=== PATIENT | male | born 1960 | race Hispanic/Latino ===

== ENCOUNTER 2016-11-03 11:09 | Inpatient (IN) | payer MEDICARE, MEDICAID ==
[2016-11-03 11:10] VITALS: PULSE 90
[2016-11-03 11:16] VITALS: BMI 54.1
--- NOTE | 2016-11-03 11:53 | C.PDOC ---
History Of Present Illness 55 y/o male, PMHx of HTN, DM, morbid obesity, COPD, CHF, urosepsis multiple times, chronic Fry and infections, presents to ED with c/o pain at Fry site. Patient sent from [facility], accompanied by daughter. Pt states pain started today at 0200. Notes burning sensation on urination since yesterday afternoon. Also reports chills and "pins and needles" sensation in lower extremities. Denies fever, nausea, vomiting, or other associated symptoms. Patient normally f/u with Dr. Cedeno, advised to come to ER today. Typically seen at [facility]. Review of prior records shows history of lamenectomy and penectomy. Chief Complaint (Nursing): Male Genitourinary History Per: Patient History/Exam Limitations: no limitations Current Symptoms Are (Timing): Still Present Associated Symptoms: Chills, Urinary Symptoms. denies: Fever, Nausea, Vomiting , Diarrhea Recent travel outside of the [place]: No Past Medical History Reviewed: Historical Data, Nursing Documentation, Vital Signs Vital Signs: Last Vital Signs Temp 97.8 F 11/06/16 07:00 Pulse 68 11/06/16 07:00 Resp 18 11/06/16 07:00 BP 164/92 H 11/06/16 07:00 Pulse Ox 97 11/06/16 07:00 - Medical History PMH: Anemia, Asthma, Atrial Fibrillation, Cardia Arrhythmia (Afib), CHF, COPD, HTN - [facility] Procedures ASSISTANCE WITH RESPIRATORY VENTILATION, <24 HRS, CPAP (09/14/16) CHANGE DRAINAGE DEVICE IN BLADDER, EXTERNAL APPROACH (03/08/16) INSPECTION OF URETER, ENDO (03/08/16) INTRODUCTION OF VASOPRESSOR INTO PERIPH VEIN, PERC APPROACH (09/02/15) IRRIGATION OF INDWELL DEV USING IRRIGAT, LAWN CARE SPECIALIST APPROACH (03/08/16) PLAIN RADIOGRAPHY OF BLADDER (03/08/16) Family History: States: Unknown Family Hx - Social History Hx Alcohol Use: No Hx Substance Use: No - Immunization History Hx Tetanus Toxoid Vaccination: No Hx Influenza Vaccination: No Hx Pneumococcal Vaccination: No Review Of Systems Except As Marked, All Systems Reviewed And Found Negative. Constitutional: Positive for: Chills. Negative for: Fever Gastrointestinal: Negative for: Nausea, Vomiting, Abdominal Pain, Diarrhea Genitourinary: Positive for: Scrotal Pain, Rash. Negative for: Hematuria Skin: Negative for: Rash Physical Exam - Physical Exam Appears: Non-toxic, No Acute Distress Skin: Warm, Dry Head: Atraumatic, Normacephalic Oral Mucosa: Moist Chest: Symmetrical Cardiovascular: Rhythm Regular Respiratory: Normal Breath Sounds, No Rales, No Rhonchi, No Wheezing Gastrointestinal/Abdominal: Soft, No Tenderness, Other (obese abdomen) Back: Normal Inspection Male Genital: Other (Fry in place. Redness, swelling, and tenderness to scrotal area. (+) Pus around Fry insertion site. ) Neurological/Psych: Oriented x3, Normal Speech, Normal Cognition ED Course And Treatment - Laboratory Results Result Diagrams: 11/05/16 07:44 11/04/16 08:18 O2 Sat by Pulse Oximetry: 96 (RA) Pulse Ox Interpretation: Normal Disposition Discussed With : Dee Dee Garcia Doctor Will See Patient In The: Hospital Counseled Patient/Family Regarding: Studies Performed, Diagnosis - Disposition Disposition: HOSPITALIZED Disposition Time: 13:49 Condition: GUARDED - POA Present On Arrival: None - Clinical Impression Clinical Impression: Cellulitis, Urinary catheter infection - Scribe Statement The provider has reviewed the documentation as recorded by the Dominic Wade Provider Scribe Attestation: All medical record entries made by the Dominic were at my direction and personally dictated by me. I have reviewed the chart and agree that the record accurately reflects my personal performance of the history, physical exam, medical decision making, and the department course for this patient. I have also personally directed, reviewed, and agree with the discharge instructions and disposition. Decision To Admit - Pt Status Changed To: Hospital Disposition Of: Inpatient - Admit Certification Admit to Inpatient:: After my assessment, the patient will require hospitalization for at least two midnights. This is because of the severity of symptoms shown, intensity of services needed, and/or the medical risk in this patient being treated as an outpatient. - InPatient: Physician Admission Certification: I certify that this patient requires 2 or more midnights of care for the following reason:: celulitis , groin, uti - . Bed Request Type: Regular Patient Diagnosis: Cellulitis, Urinary catheter infection
[2016-11-03] MEDS ORDERED: cefTRIAXone IV 1 gm in Dextros 50 ML IVPB STA (12:31)
[2016-11-03] MEDS ORDERED: Vancomycin 1 gm/NS 200 ml 1 GM/200 ML BAG IVPB ONE (13:30)
[2016-11-03 13:33] LABS: VENOUS BLOOD GAS BASE EXCESS 4.5 mmol/L (0.0-2.0); VENOUS BLOOD GAS PCO2 54 mmHg (40-60); VENOUS BLOOD PH 7.37 (7.32-7.43)
[2016-11-03] MEDS ORDERED: Morphine 4 MG/ML VIAL IV STA (13:36)
[2016-11-03] MEDS ORDERED: Morphine 4 MG/ML VIAL ONE (13:38)
[2016-11-03 13:39] LABS: BASO # 0.1 K/uL (0.0-0.2); BASO % 0.2 % (0.0-2.0); EOS % 0.1 % (0.0-4.0); HEMATOCRIT 53.6 % (35.0-51.0); LYMPH % 4.6 % (20.0-40.0); MEAN CORPUSCULAR HEMOGLOBIN 26.7 pg (27.0-31.0); MEAN CORPUSCULAR HGB CONC 32.2 g/dL (33.0-37.0); MEAN PLATELET VOLUME 9.4 fL (7.2-11.7); MONO # 1.3 K/uL (0.0-0.8); MONO % 5.7 % (0.0-10.0); NRBC % 0.1 % (0.0-2.0); PLATELET COUNT 276 K/uL (130-400); RED CELL DISTRIBUTION WIDTH 14.7 % (11.5-14.5); WHITE BLOOD COUNT 22.5 K/uL (4.8-10.8)
[2016-11-03 13:47] LABS: CHLORIDE 95 mmol/L (98-107)
[2016-11-03 13:48] LABS: POTASSIUM 4.8 mmol/L (3.6-5.2); SODIUM 137 mmol/L (132-148)
[2016-11-03 13:50] LABS: INR 1.5
[2016-11-03 13:51] LABS: ALB/GLOB RATIO 1.1 (1.0-2.1); ALKALINE PHOSPHATASE 95 U/L (38-126); ALT/SGPT 26 U/L (21-72); AST/SGOT 30 U/L (17-59); BILIRUBIN,TOTAL 0.9 mg/dL (0.2-1.3); BLOOD UREA NITROGEN 25 mg/dL (9-20); CALCIUM 9.2 mg/dl (8.6-10.4); CARBON DIOXIDE 28 mmol/L (22-30); GFR AFRICAN-AMERICAN > 60; GLUCOSE,RANDOM 133 mg/dL (75-110); PHOSPHOROUS 3.5 mg/dL (2.5-4.5); TOTAL PROTEIN 7.9 g/dL (6.3-8.3)
[2016-11-03 13:53] LABS: RBC URINE 8 /hpf (0-3); URINE BACTERIA RARE (<OCC); URINE BILIRUBIN 2+ (NEGATIVE); URINE BLOOD 1+ (NEGATIVE); URINE COLOR Amber (YELLOW); URINE GLUCOSE (UA) NORMAL (Normal); URINE KETONE NEGATIVE (NEGATIVE); URINE LEUKOCYTE ESTERASE TRACE Leu/uL (Negative); URINE PROTEIN 3+ mg/dL (NEGATIVE); URINE UROBILINOGEN NORMAL mg/dL (0.2-1.0); WBC URINE 8 /hpf (0-5)
[2016-11-03] MEDS ORDERED: Aztreonam 2 GM in Sodium Chloride 0.9% 100 ML IVPB ONE (13:55)
[2016-11-03 13:56] LABS: URINE TRIPLE PHOSPHATE CRYSTAL FEW /hpf (<OCC)
[2016-11-03 14:50] LABS: BASOPHIL 1 % (0-2); NEUTROPHIL 91 % (50-75); TOTAL CELLS COUNTED 100
--- NOTE | 2016-11-03 14:59 | RAD ---
HISTORY: Sepsis Patient semi portable study 12:45. COMPARISON: No prior. FINDINGS: LUNGS: No active pulmonary disease. PLEURA: No significant pleural effusion identified, no pneumothorax apparent. CARDIOVASCULAR: No radiographic findings to suggest acute or significant cardiovascular disease. OSSEOUS STRUCTURES: No significant abnormalities. VISUALIZED UPPER ABDOMEN: Normal. OTHER FINDINGS: None. IMPRESSION: No active disease.
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
--- NOTE | 2016-11-03 17:16 | CT ---
PROCEDURE: CT pelvis HISTORY: groin infection r/o air COMPARISON: Not available TECHNIQUE: Computed tomography of the pelvis was performed without intravenous contrast administration. 2.5 mm contiguous axial sections were acquired from the iliac crests through the perineum. Total exam DLP: 1765.00 mGy-cm FINDINGS: There is a low-density structure just to the left of midline above the level of the perineum. This measures 3.8 x 1.9 by 4.8 cm. There is no surrounding inflammatory change. It is thin walled. Differential diagnosis includes abscess or undescended testicle. Please correlate. There is cellulitis of the medial proximal left thigh, just below the level of the perineum. This is seen as cutaneous thickening and streaky increased attenuation of the subcutaneous fat. There is no abscess. There is no subcutaneous emphysema. A urinary catheter is noted extending into the urinary bladder. Examination of the pelvis demonstrates the bladder to be thick walled with mild surrounding inflammatory change consistent with cystitis. Prostate and seminal vesicles are grossly normal. There are no abnormal bowel loops. There is no evidence of ascites. There is no significant pelvic lymphadenopathy. IMPRESSION: Cellulitis of the medial proximal left thigh. No abscess or subcutaneous emphysema. Low-attenuation structure to the left of midline just above the level of the perineum, possibly an undescended testis. Abscess is less likely given the absence of surrounding inflammatory change. There is acute cystitis. This is manifested as thick walled urinary bladder with perivesical inflammatory change. A urinary catheter is noted.
[2016-11-03] MEDS: (Novolin R) Insulin Human Regular 100 units/ml vial SC SCH (21:53)
[2016-11-03] MEDS ORDERED: Insulin Detemir 100 units/ml Vial (Levemir) SC SCH (22:00)
[2016-11-03] MEDS ORDERED: Aztreonam 1 GM in Sodium Chloride 0.9% 100 ML IVPB ONE (22:05)
[2016-11-04 08:26] LABS: BASO # 0.1 K/uL (0.0-0.2); BASO % 0.3 % (0.0-2.0); EOS % 0.1 % (0.0-4.0); HEMATOCRIT 46.3 % (35.0-51.0); LYMPH # 1.3 K/uL (1.0-4.3); LYMPH % 7.1 % (20.0-40.0); MEAN CELL VOLUME 82.5 fL (80.0-94.0); MEAN CORPUSCULAR HEMOGLOBIN 26.6 pg (27.0-31.0); MEAN CORPUSCULAR HGB CONC 32.2 g/dL (33.0-37.0); MEAN PLATELET VOLUME 9.5 fL (7.2-11.7); MONO # 1.8 K/uL (0.0-0.8); MONO % 10.2 % (0.0-10.0); PLATELET COUNT 234 K/uL (130-400); RED CELL DISTRIBUTION WIDTH 14.8 % (11.5-14.5); WHITE BLOOD COUNT 17.8 K/uL (4.8-10.8)
[2016-11-04 08:39] LABS: BILIRUBIN,DIRECT 0.5 mg/dL (0.0-0.4); BILIRUBIN,TOTAL 0.9 mg/dL (0.2-1.3)
[2016-11-04 08:40] LABS: CALCIUM 8.3 mg/dl (8.6-10.4); TOTAL PROTEIN 6.4 g/dL (6.3-8.3)
[2016-11-04] MEDS: (Novolin R) Insulin Human Regular 100 units/ml vial SC SCH ×4 (08:41→22:00)
--- NOTE | 2016-11-04 09:28 | HP ---
CHIEF COMPLAINT: Burning at micturition, genitalia hurts. HISTORY OF PRESENT ILLNESS: The patient is a 55-year-old male with past medical history of hypertension, diabetes mellitus, morbid obesity, COPD, congestive heart failure, urosepsis multiple times, chronic Fry catheter, presented to the Emergency Room complaining of pain at the Fry site. The patient [facility] accompanied by daughter. The patient stated that the pain started today at 2:00 p.m. and the patient noticed a burning sensation on urination since yesterday afternoon, also reports chills, pins and needles sensation in the lower extremities. Denies nausea, vomiting, diarrhea. No headache, no dizziness. Actually, the patient is supposed to see Dr. Cedeno, but he advised to come to the Emergency Room. Typically, the patient is seen at the [facility]; however, our prior record shows history of laminectomy and splenectomy PAST MEDICAL HISTORY: Anemia, asthma, atrial fibrillation, obesity, congestive heart failure, COPD, hypertension, obstructive sleep apnea syndrome, splenectomy , laminectomy. HABITS: Never smoked, no drugs, no ethanol. FAMILY HISTORY: Father and mother noncontributory. ALLERGIES: THE PATIENT IS ALLERGIC TO PENICILLIN. HOME MEDICATIONS: Metoprolol, clonidine, Levemir, NovoLog, Pepcid, aspirin, Tylenol. REVIEW OF SYSTEMS: The patient seen and examined on the bedside in his room on the third tower. No hematuria or hematochezia. No swelling of the leg. No chest pain, no palpitation, no headache, no dizziness. No fever, no chills. Complaining about burning sensation at the genitalia. Pain at micturition. Feeling fatigued and tired. No chest pain, no shortness of breath. PHYSICAL EXAMINATION: VITAL SIGNS: Temperature 98, pulse 111, blood pressure 170/75, respiratory rate 20. HEENT: Head normocephalic, atraumatic. Eyes: PERRLA. Extraocular muscles intact. Conjunctivae clear. Eyelids unremarkable. Nose patent. Mucous membranes moist. NECK: Supple. No carotid bruit, JVD or thyromegaly. CHEST: Bilaterally symmetrical. HEART: S1, S2 positive. LUNGS: Clear to auscultation. ABDOMEN: Soft. Bowel sounds present. No organomegaly. EXTREMITIES: No edema, no cyanosis. NEUROLOGIC: The patient is awake, alert, moving all 4 extremities. No focal deficit. LABORATORY DATA: White blood cell is 22.5, hemoglobin 17.2, hematocrit 35.6, platelets 276. Sodium 137, potassium 4.8, BUN 25, creatinine 1.3, glucose 145. ASSESSMENT AND PLAN: The patient is a 55-year-old male with leukocytosis, hyperglycemia, proteinuria, hematuria, seen by Dr. Robbi Whitt, infectious disease, went for pelvic CT, showed cellulitis of the medial proximal left thigh , no abscess or subcutaneous emphysema, low-attenuated structure to the left midline just above the level of the perineum, possibly an undescended testis. Abscess is less likely given the absence of the surrounding inflammatory changes. There is acute cystitis. This is manifested as thick-walled urinary bladder with perivesical inflammation, inflammatory changes. Urinary catheter is noted. The patient had splenectomy and always has a Fry inserted. Due to weight, testicles are not visible. Maybe in the CAT scan, it looks like testicles, has cystitis. Urology consult called with Dr. Cedeno. Dr. Cedeno is always changing the patient's Fry catheter. The patient has history of hypertension, diabetes mellitus, morbid obesity, chronic obstructive pulmonary disease, congestive heart failure, multiple times urosepsis. We will do present treatment. Continue antibiotics. Maybe Dr. Cedeno has to change the Fry catheter. Consult called with Dr. Whitt, infectious disease and Dr. Clint Cedeno, urologist. Continue aspirin, heparin, metoprolol, morphine pain medication, regular insulin sliding scale, Pepcid, vancomycin. Gastrointestinal and deep venous thrombosis prophylaxis. Repeat labs. We will follow up. Dee Dee Garcia MD cc: [id number] TT: 11/04/2016 09:26:47 ana CRUZ
[2016-11-04 12:38] LABS: REACTIVE LYMPHOCYTES 2 % (0-0); TOTAL CELLS COUNTED 100
[2016-11-04 12:39] LABS: NEUTROPHIL 80 % (50-75)
[2016-11-04] MEDS: Tigecycline 50 MG in Dextrose 5% In Water 100 ML IVPB SCH (16:30)
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
--- NOTE | 2016-11-05 00:48 | CP.PCM.PN ---
Subjective - Date & Time of Evaluation Date of Evaluation: 11/04/16 Time of Evaluation: 20:00 - Subjective Subjective: PROGRESS NOTE; DATE ; 11/04/16. SEE REPORTS pATIENT SEEN AND EXAMINED AT BEDSIDE. lABS AND MICROBIOLOGY REVIEWED PROGRESS NOTE DICTATED.; DICTATION NO. # [id number] CASE DISCUSSED WITH THE STAFF AND ORDERS GIVEN. Objective - Vital Signs/Intake and Output Vital Signs (last 24 hours): Temp Pulse Resp BP Pulse Ox 98.1 F 84 20 128/76 96 11/04/16 23:41 11/04/16 23:41 11/04/16 23:41 11/04/16 23:41 11/04/16 23:41 Intake and Output: 11/04/16 11/05/16 18:59 06:59 Intake Total 500 Output Total 2800 Balance -2300 - Medications Medications: Current Medications Aspirin (Aspirin Chewable) 81 mg PO DAILY [facility] Last Admin: 11/04/16 11:28 Dose: 81 mg Famotidine (Pepcid) 20 mg PO BID [facility] Last Admin: 11/04/16 17:18 Dose: 20 mg Heparin Sodium (Porcine) (Heparin) 5,000 units SC Q8 [facility] Last Admin: 11/04/16 22:00 Dose: 5,000 units Tigecycline 50 mg/ Dextrose 100 mls @ 100 mls/hr IVPB Q12H [facility] Last Admin: 11/04/16 16:30 Dose: 100 mls/hr Insulin Human Regular (Novolin R) 0 unit SC ACHS [facility] PRN Reason: Protocol Last Admin: 11/04/16 22:00 Dose: Not Given Metoprolol Tartrate (Lopressor) 25 mg PO BID [facility] Last Admin: 11/04/16 17:18 Dose: 25 mg Morphine Sulfate (Morphine) 2 mg IVP Q4 PRN PRN Reason: Pain, severe (8-10) Last Admin: 11/03/16 20:11 Dose: 2 mg Nystatin (Nystop Topical Powder) 1 applic TOP BID [facility] - Labs Labs: 11/04/16 08:18 11/04/16 08:18 PT 17.9 SECONDS (9.7-12.2) H 11/03/16 13:34 INR 1.5 11/03/16 13:34 APTT 42 SECONDS (21-34) H 11/03/16 13:34 Assessment and Plan (1) Sepsis Status: Acute (2) UTI (urinary tract infection) Status: Acute (3) Cellulitis Status: Acute
[2016-11-05] MEDS: Tigecycline 50 MG in Dextrose 5% In Water 100 ML IVPB SCH ×2 (03:17→16:00)
--- NOTE | 2016-11-05 04:21 | PN ---
DATE: 11/04/2016 SUBJECTIVE: The patient seen and examined at bedside, appears comfortable, still complaining of pain at the site of the catheter insertion. No hematuria, but incontinence of urine noted around the cat heter site. Bilateral erythema of both groins and scrotum noted. Denies nausea, vomiting, or diarrh ea. PHYSICAL EXAMINATION: VITAL SIGNS: The patient is afebrile at 98.8, pulse 85, blood pressure 121/70, respirations 20. HEENT: Pupils equal, reactive to light and accommodation. Left eye blind. NECK: Appears to be normal and supple. No carotid bruit. JVP not elevated. No thyromegaly. LUNGS: Bilateral symmetrical. No rhonchi. CARDIOVASCULAR SYSTEM: S1, S2 regular, positive. LUNGS: Clear to auscultation, some diminished breath sounds at the bases. ABDOMEN: Soft, obese. Bowel sounds present. No organomegaly appreciated. Skin folds. EXTREMITIES: Bilateral edema of the lower extremities noted. No cyanosis, no clubbing. GENITOURINARY: Erythema of the scrotal region and bilateral groins noted, consistent with moniliasis . CENTRAL NERVOUS SYSTEM: The patient is awake, but unable to move lower extremities, except for withd kevon reflex. LABORATORY DATA NOTED: WBC is 17.8, H and H of 14.9 and 46.3, platelets 234. Creatinine 1.8, BUN of 36, GFR of 39. Liver function tests are okay. CT pelvis without p.o. or IV contrast, 11/03/2016, n oted cellulitis in the medial proximal thigh, no abscess. Subcutaneous emphysema noted. Acute cysti tis with thick-walled urinary bladder with inflammation. Urinary catheter is in place. See fu ll report for details. IMPRESSION: 1. Sepsis, most likely genitourinary sepsis. 2. Urinary tract infection and cystitis with chronic Fry in place. 3. Bilateral moniliasis. PLAN: Suggest wait for cultures, UA, and urine. Continue IV Tygacil 50 mg q. 12 hourly for now. Al so, we will order nystatin powder for bilateral groins, lower extremities. Keep the area dry. The p atient got 1 dose of amikacin 1000 mg on 11/03/2016. Monitor renal functions closely. Neurology is o n the case. We will follow along with you. Thank you very much for allowing me to participate in the care of your patient. Robbi Whitt MD cc: [id number] TT: 11/05/2016 04:20:28 Confirmation # [id number] Dictation # [id number] vn
[2016-11-05 07:51] LABS: BASO # 0.1 K/uL (0.0-0.2); BASO % 0.8 % (0.0-2.0); EOS # 0.3 K/uL (0.0-0.7); EOS % 2.5 % (0.0-4.0); HEMATOCRIT 43.9 % (35.0-51.0); LYMPH # 1.7 K/uL (1.0-4.3); LYMPH % 13.3 % (20.0-40.0); MEAN CELL VOLUME 82.7 fL (80.0-94.0); MEAN CORPUSCULAR HEMOGLOBIN 27.2 pg (27.0-31.0); MEAN CORPUSCULAR HGB CONC 32.9 g/dL (33.0-37.0); MEAN PLATELET VOLUME 9.1 fL (7.2-11.7); MONO # 1.1 K/uL (0.0-0.8); MONO % 9.1 % (0.0-10.0); RED CELL DISTRIBUTION WIDTH 14.8 % (11.5-14.5); WHITE BLOOD COUNT 12.5 K/uL (4.8-10.8)
[2016-11-05] MEDS: (Novolin R) Insulin Human Regular 100 units/ml vial SC SCH ×4 (08:00→21:54)
[2016-11-06] MEDS: Tigecycline 50 MG in Dextrose 5% In Water 100 ML IVPB SCH ×2 (03:14→14:46)
--- NOTE | 2016-11-06 07:51 | PN ---
DATE: 11/05/2016 The patient is a 55-year-old male. The patient seen and examined on the bedside , looks comfortable. Groin area pain is getting better, like 01/15. No hematuria, no hematochezia. No headache, no dizziness. No fever, no chills, no swelling of the legs. REVIEW OF SYSTEMS: All 12 points systemic review is negative except above. PHYSICAL EXAMINATION: VITAL SIGNS: Temperature 98.8, pulse 85, blood pressure 120/70, respiratory rate 20. HEENT: Head normocephalic, atraumatic. Eyes, PERRLA. Extraocular muscles intact. Conjunctivae are clear. Nose patent. NECK: Supple. No carotid bruit, no JVD, no thyromegaly. CHEST: Bilaterally symmetrical. HEART: S1, S2 positive. LUNGS: Clear to auscultation. ABDOMEN: Soft. Bowel sounds positive. No organomegaly. EXTREMITIES: No edema, no cyanosis, no clubbing. GENITOURINARY: Erythematous of the scrotal region, bilateral groin areas is like red, consistent with moniliasis. LABORATORIES: White blood cells 17.8, hemoglobin 14.9, hematocrit 46.3, platelets 234. BUN noted , creatinine 1.8. MEDICATIONS: Reviewed by me. ASSESSMENT AND PLAN: The patient is a 55-year-old male, came with sepsis, most likely genitourinary sepsis, urinary tract infection with cystitis with chronic Fry in place, bilateral moniliasis. Went for CAT scan of the pelvis without p.o. and IV contrast, noted cellulitis, especially medial proximal thighs. No abscess. waiting for cultures of urine. Continue IV Tygacil. Dr. Whitt ordered nystatin powder for bilateral groin areas. Keep area dry. The patient got a dose of amikacin. Urologist is on the case. Appreciated Dr. Whitt's input. Comorbid obesity, chronic obstructive pulmonary disease, obstructive sleep apnea syndrome. Gastrointestinal and deep venous thrombosis prophylaxis. Repeat labs. Will follow up. Dee Dee Garcia MD cc: [id number] TT: 11/06/2016 07:51:25 Confirmation # [id number] Dictation # [id number] hira CRUZ
[2016-11-06] MEDS: (Novolin R) Insulin Human Regular 100 units/ml vial SC SCH ×4 (08:11→21:17)
[2016-11-06 16:51] VITALS: RESP 20
--- NOTE | 2016-11-06 17:06 | CP.PCM.PN ---
Subjective - Date & Time of Evaluation Date of Evaluation: 11/06/16 Time of Evaluation: 17:06 - Subjective Subjective: INFECTIOUS DISEASE F/U: PROGRESS NOTE; 11/06/16 DICTATED; DICT NO: # [id number] SEE REPORTS NEEDS F/U FOR CHANGING FOLY CATHETER. Objective - Vital Signs/Intake and Output Vital Signs (last 24 hours): Temp Pulse Resp BP Pulse Ox 98.6 F 65 20 136/86 95 11/06/16 15:00 11/06/16 15:00 11/06/16 15:00 11/06/16 15:00 11/06/16 15:00 Intake and Output: 11/06/16 11/06/16 06:59 18:59 Intake Total 350 280 Output Total 1200 900 Balance -850 -620 - Medications Medications: Current Medications Aspirin (Aspirin Chewable) 81 mg PO DAILY [facility] Last Admin: 11/06/16 10:33 Dose: 81 mg Famotidine (Pepcid) 20 mg PO BID [facility] Last Admin: 11/06/16 10:34 Dose: 20 mg Heparin Sodium (Porcine) (Heparin) 5,000 units SC Q8 [facility] Last Admin: 11/06/16 14:45 Dose: 5,000 units Tigecycline 50 mg/ Dextrose 100 mls @ 100 mls/hr IVPB Q12H [facility] Last Admin: 11/06/16 14:46 Dose: 100 mls/hr Insulin Human Regular (Novolin R) 0 unit SC ACHS [facility] PRN Reason: Protocol Last Admin: 11/06/16 12:46 Dose: Not Given Metoprolol Tartrate (Lopressor) 25 mg PO BID [facility] Last Admin: 11/06/16 10:33 Dose: 25 mg Morphine Sulfate (Morphine) 2 mg IVP Q4 PRN PRN Reason: Pain, severe (8-10) Last Admin: 11/06/16 06:38 Dose: 2 mg Nystatin (Nystop Topical Powder) 1 applic TOP BID [facility] Last Admin: 11/06/16 14:43 Dose: 1 applic - Labs Labs: 11/05/16 07:44 11/04/16 08:18 PT 17.9 SECONDS (9.7-12.2) H 11/03/16 13:34 INR 1.5 11/03/16 13:34 APTT 42 SECONDS (21-34) H 11/03/16 13:34 Assessment and Plan (1) Sepsis Status: Acute (2) UTI (urinary tract infection) Status: Acute (3) Cellulitis Status: Acute
[2016-11-06] MEDS: Aztreonam 1 GM in Sodium Chloride 0.9% 100 ML IVPB SCH (18:30)
[2016-11-06 21:41] LABS: RBC URINE 53 /hpf (0-3); URINE BACTERIA MOD (<OCC); URINE BILIRUBIN NEGATIVE (NEGATIVE); URINE BLOOD 3+ (NEGATIVE); URINE COLOR Yellow (YELLOW); URINE GLUCOSE (UA) NORMAL (Normal); URINE KETONE NEGATIVE (NEGATIVE); URINE LEUKOCYTE ESTERASE 3+ Leu/uL (Negative); URINE PROTEIN NEGATIVE (NEGATIVE); URINE UROBILINOGEN NORMAL mg/dL (0.2-1.0); WBC URINE 340 /hpf (0-5)
[2016-11-07] MEDS: Aztreonam 1 GM in Sodium Chloride 0.9% 100 ML IVPB SCH ×3 (01:21→17:09)
[2016-11-07] MEDS: Tigecycline 50 MG in Dextrose 5% In Water 100 ML IVPB SCH ×2 (02:48→15:15)
--- NOTE | 2016-11-07 06:18 | PN ---
DATE: 11/06/2016 SUBJECTIVE: The patient was seen and examined on the bedside, looks comfortable. No new change in t he status. No nausea, vomiting, or diarrhea. No hematuria or hematochezia. No headache, no fever, no diarrhea, no constipation. PHYSICAL EXAMINATION: VITAL SIGNS: Temperature 98.6, pulse 65, respiratory rate 20, blood pressure 136/66, and pulse oxime try 95. HEENT: Head normocephalic and atraumatic. Eyes: PERRLA. Extraocular muscles intact. Conjunctivae clear. Eyelids unremarkable. Nose patent. Mucous membranes moist. NECK: Supple. No carotid bruit, JVD or thyromegaly. CHEST: Bilaterally symmetrical. HEART: S1, S2 positive. LUNGS: Clear to auscultation. ABDOMEN: Soft. Bowel sounds present. No organomegaly. EXTREMITIES: No edema, no cyanosis. NEUROLOGIC: The patient is awake, alert, moving all 4 extremities. No focal deficit. MEDICATIONS: Ecotrin, Pepcid, heparin, Tygacil, Lopressor, morphine. LABORATORY DATA: White blood cells 12.5, hemoglobin 14.4, hematocrit 33.9, and platelets 231. Sodiu m 136, potassium 4.0, BUN 36, creatinine 1.8, glucose 123. ASSESSMENT AND PLAN: The patient had a 55-year-old male with leukocytosis, renal insufficiency, hype rglycemia, came with sepsis, urinary tract infection, perineal area and genitalia cellulitis, comorbi d obesity. Continue antibiotics as per Dr. Whitt. Urologist, Dr. Cedeno, is on the case but I am no t seeing any documentation from him. I hope he will do documentation. Continue gastrointestinal and deep venous thrombosis prophylaxis. Repeat labs. We will follow up. Dee Dee Garcia MD cc: [id number] TT: 11/07/2016 06:17:42 Confirmation # [id number] Dictation # [id number] tn
[2016-11-07] MEDS: (Novolin R) Insulin Human Regular 100 units/ml vial SC SCH ×3 (07:49→17:06)
[2016-11-07 08:10] LABS: BASO # 0.1 K/uL (0.0-0.2); BASO % 0.5 % (0.0-2.0); EOS # 0.4 K/uL (0.0-0.7); EOS % 3.7 % (0.0-4.0); HEMATOCRIT 45.1 % (35.0-51.0); LYMPH # 1.7 K/uL (1.0-4.3); LYMPH % 15.5 % (20.0-40.0); MEAN CELL VOLUME 83.7 fL (80.0-94.0); MEAN CORPUSCULAR HGB CONC 33.4 g/dL (33.0-37.0); MONO % 9.7 % (0.0-10.0); NRBC % 0.1 % (0.0-2.0); RED CELL DISTRIBUTION WIDTH 14.2 % (11.5-14.5); WHITE BLOOD COUNT 10.7 K/uL (4.8-10.8)
[2016-11-07 08:32] LABS: CHLORIDE 98 mmol/L (98-107); POTASSIUM 3.9 mmol/L (3.6-5.2); SODIUM 138 mmol/L (132-148)
[2016-11-07 08:34] LABS: CARBON DIOXIDE 30 mmol/L (22-30); GFR AFRICAN-AMERICAN > 60
[2016-11-07 08:35] LABS: ALKALINE PHOSPHATASE 71 U/L (38-126); ALT/SGPT 23 U/L (21-72); AST/SGOT 14 U/L (17-59); BILIRUBIN,DIRECT 0.4 mg/dL (0.0-0.4); BILIRUBIN,TOTAL 0.9 mg/dL (0.2-1.3); BLOOD UREA NITROGEN 22 mg/dL (9-20); GLUCOSE,RANDOM 91 mg/dL (75-110); TOTAL PROTEIN 6.4 g/dL (6.3-8.3)
[2016-11-07 08:36] VITALS: TEMP 98.5
--- NOTE | 2016-11-07 09:10 | CON ---
DATE: 11/06/2016 ATTENDING: Dr. Paniagua. SUBJECTIVE: The patient is seen and examined at bedside and is comfortable and complains of pain at the site of the catheter insertion. Denies any hematuria, but incontinent of urine around the cathet er site. Bilateral erythema of both groins and scrotum, slightly improved. The patient denies nausea, vomiting, or diarrhea. PHYSICAL EXAMINATION: VITAL SIGNS: The patient is afebrile. T-max of 98.1, blood pressure 160/88, respiratory rate 20, pu lse 76 per minute, oxygen saturation 98% on room air. HEENT: Pupils equal, reactive to light and accommodation. Left eye is blind. NECK: Appears to be supple. No carotid bruits. JVP not elevated. No thyromegaly. LUNGS: Fair air entry. CARDIOVASCULAR SYSTEM: S1, S2 regular. No murmur or gallop. ABDOMEN: Soft. Obese. Bowel sounds are present. No organomegaly appreciated. EXTREMITIES: Bilateral edema of the lower extremities noted with some cellulitis around the groin re gion and erythema. No cyanosis. No clubbing. GENITOURINARY: As reported above. Erythema of the scrotal region edema and bilateral groins, consis tent with moniliasis. CENTRAL NERVOUS SYSTEM: The patient is awake, but unable to move lower extremities, except for withd kevon reflex. LABORATORY DATA NOTED: Repeat UA: Hazy, 3+ blood, 3+ leukocyte esterase, WBCs , RBCs 53, ____ _ moderate. Blood cultures 11/03/2016: Negative to date. 11/03/2016 urine culture: 50,000 to 100, 000 multiple organisms seen. Vancomycin trough. Western blot. The patient is off vancomycin. IMPRESSION: 1. 2. Urinary tract We will initiate IV Azactam 1 g q. 8 hours for now as patient has tolerated Azactam previously in his admission of 08/13/2016. Case discussed with to deliver the medications and to also giv en Benadryl 50 mg 30 minutes prior to as tolerated. Continue Azactam 1 gram for now. The patient had his Fry changed. evaluation for changing Fry catheter and further workup. Discussed with . Thank you very much for allowing me to participate Robbi Whitt MD cc: [id number] TT: 11/07/2016 05:07:21 Confirmation # [id number] Dictation # [id number] tn
--- NOTE | 2016-11-07 16:19 | CP.PCM.PN ---
Subjective - Date & Time of Evaluation Date of Evaluation: 11/07/16 Time of Evaluation: 13:00 - Subjective Subjective: Pt seen and examined today , c/o pain to the groin area, denies any other complaints plata cath changed today by Dr. Cedeno . E Objective - Vital Signs/Intake and Output Vital Signs (last 24 hours): Temp Pulse Resp BP Pulse Ox 98.5 F 62 20 162/90 H 97 11/07/16 08:00 11/07/16 08:00 11/07/16 08:00 11/07/16 10:46 11/07/16 08:00 Intake and Output: 11/07/16 11/07/16 06:59 18:59 Intake Total 540 450 Output Total 1200 800 Balance -660 -350 - Medications Medications: Current Medications Aspirin (Aspirin Chewable) 81 mg PO DAILY [facility] Last Admin: 11/07/16 10:46 Dose: 81 mg Doxycycline Hyclate (Doryx) 100 mg PO BID [facility] Famotidine (Pepcid) 20 mg PO BID [facility] Last Admin: 11/07/16 10:46 Dose: 20 mg Aztreonam 1 gm/ Sodium (Chloride) 100 mls @ 100 mls/hr IVPB Q8H [facility] Last Admin: 11/07/16 10:45 Dose: 100 mls/hr Insulin Human Regular (Novolin R) 0 unit SC ACHS [facility] PRN Reason: Protocol Last Admin: 11/07/16 11:37 Dose: Not Given Metoprolol Tartrate (Lopressor) 25 mg PO BID [facility] Last Admin: 11/07/16 10:46 Dose: 25 mg Morphine Sulfate (Morphine) 2 mg IVP Q4 PRN PRN Reason: Pain, severe (8-10) Last Admin: 11/07/16 11:24 Dose: 2 mg Nystatin (Nystop Topical Powder) 1 applic TOP BID [facility] Last Admin: 11/07/16 10:54 Dose: 1 applic - Labs Labs: 11/07/16 08:05 11/07/16 08:05 PT 17.9 SECONDS (9.7-12.2) H 11/03/16 13:34 INR 1.5 11/03/16 13:34 APTT 42 SECONDS (21-34) H 11/03/16 13:34 Assessment and Plan - Assessment and Plan (Free Text) Assessment: A/P VSS- STABLE A FEBRILE blood culture - negative D/w Dr. Whitt, cleared fro discharge to [facility] tooday from ID standpoint with 7 days of vibramycin D/W Dr. Castro , can be discharge to [facility] today and Dr. Castro will follow thte patient at [facility] Discharge plan discussed with patient , who understands and agrees with plan
[2016-11-07 16:43] VITALS: PULSE 65; O2SAT 96
[2016-11-07 17:08] VITALS: BP 170/82
--- NOTE | 2016-11-08 09:06 | CARD ---
APPROVED REPORT EKG Measurement Heart [id number] <Conclusion> Normal sinus rhythm Possible Left atrial enlargement Borderline ECG
--- NOTE | 2016-11-16 08:31 | DS ---
CHIEF COMPLAINT: Burning on micturition, genitalia hurts.. HISTORY OF PRESENT ILLNESS: The patient is a 55-year-old male, resident of [facility], status post splenectomy, has history of hypertension, diabetes mellitus, morbid obesity, COPD, congestive heart failure, has chronic Fry catheter, came to the Emergency Room because of pain at the genitalia and Fry is leaking. The patient actually was sent from jail to Dr. Cedeno's office and from there, the patient was sent to [facility] accompanying daughter. According to the patient, it is like burning sensation on urination. No fever, no chills. We admitted the patient. Did CAT scan of the pelvis, chest x-ray. The patient was seen by Dr. Robbi Whitt, infectious disease. Consult was called with Dr. Clint Cedeno, but he never saw the patient. He is the urologist of the patient. After antibiotics, the patient got better, sent back to jail with antibiotics. PAST MEDICAL HISTORY: Anemia, asthma, atrial fibrillation, obesity, congestive heart failure, COPD, hypertension, obstructive sleep apnea syndrome, splenectomy , laminectomy. HABITS: Never smoked, no drugs, no ethanol. FAMILY HISTORY: Father and mother noncontributory. ALLERGIES: THE PATIENT IS ALLERGIC WITH PENICILLIN. HOME MEDICATIONS: Reviewed by me. REVIEW OF SYSTEMS: The patient was seen and examined on the bedside. Looks comfortable. No nausea, vomiting, or diarrhea. No hematuria or hematochezia. Pain is better. Does not look like toxic. PHYSICAL EXAMINATION: VITAL SIGNS: Temperature 98.1, blood pressure 150/88, respiratory rate 20, pulse 78. HEENT: Head normocephalic, atraumatic. Eyes: PERRLA. Extraocular muscles intact. Conjunctivae clear. Nose patent. Mucous membranes moist. NECK: Supple. No carotid bruit. No JVD or thyromegaly. CHEST: Bilaterally symmetrical. HEART: S1, S2 positive. LUNGS: Clear to auscultation. ABDOMEN: Soft. Bowel sounds positive. No organomegaly. EXTREMITIES: No edema, no cyanosis. NEUROLOGIC: The patient is awake, alert, moving all 4 extremities. No focal deficit. LABORATORY DATA: White blood cells 10.7, hemoglobin 15.1, hematocrit 45.1, and platelets 202. Sodium 138, potassium 3.9, BUN 22, creatinine 0.8, glucose 125, 147, calcium 8.0. ASSESSMENT AND PLAN: The patient is a 55-year-old male with leukocytosis, hyperglycemia, hematuria, urinary tract infection, status post splenectomy, renal insufficiency, has sepsis, urinary tract infection. Perineal area and genitalia cellulitis, morbid obesity. Continue antibiotics as per Dr. Whitt. Urology, Dr. Cedeno, consult called, but not seen by him. On 11/07/16, the patient was discharged home by [facility], nurse practitioner. Fry catheter changed by Dr. Cedeno on the day of discharge. Blood cultures are negative. According to Dr. Whitt, 7 more days of the anb.. Discharge plan discussed with the patient. He understands and agrees. We will follow up in [place]. I will do continuity of care there. Dee Dee Garcia MD cc: [id number] TT: 11/16/2016 08:30:49 tn MTDD
== END 2016-11-07 18:45 | DRG 698 ==
LOC: C.ER 11:09 → C.9E 13:48 → C.3T 15:04
PROVIDERS: ADMIT Internal Medicine; ATTEND Internal Medicine
DX: T83.518A Infection and inflammatory reaction due to other urinary catheter, initial encounter (principal); R65.20 Severe sepsis without septic shock; G82.20 Paraplegia, unspecified; I50.9 Heart failure, unspecified; I11.0 Hypertensive heart disease with heart failure; I48.91 Unspecified atrial fibrillation; E11.65 Type 2 diabetes mellitus with hyperglycemia; B37.9 Candidiasis, unspecified; A41.9 Sepsis, unspecified organism; L03.315 Cellulitis of perineum; N30.01 Acute cystitis with hematuria; J44.9 Chronic obstructive pulmonary disease, unspecified; E66.01 Morbid (severe) obesity due to excess calories; Y84.6 Urinary catheterization as the cause of abnormal reaction of the patient, or of later complication, without mention of misadventure at the time of the procedure; G47.33 Obstructive sleep apnea (adult) (pediatric); Z88.0 Allergy status to penicillin; H54.42 Blindness, left eye, normal vision right eye; E83.51 Hypocalcemia; Z79.4 Long term (current) use of insulin

== ENCOUNTER 2018-05-20 11:47 | Observation (INO) | payer MEDICARE, MEDICAID ==
[2018-05-16 17:36] VITALS: PULSE 90
[2018-05-16 17:46] VITALS: BMI 55.5
[2018-05-20] MEDS ORDERED: Iohexol 240 200 ML ONE (13:26)
[2018-05-20] MEDS ORDERED: Ciprofloxacin 400mg/200ml D5W 0 MG/0 ML BAG IVPB ONE (13:27)
[2018-05-20] MEDS ORDERED: Lidocaine 2% Jelly (Uro-Jet) ONE (13:27)
[2018-05-20] MEDS ORDERED: Gentamicin 160 MG in Sodium Chloride 0.9% 100 ML IVPB SCH (14:30)
[2018-05-20] MEDS ORDERED: Gentamicin 80 mg/2mL Inj. IM ONE ×2 (15:15)
[2018-05-20] MEDS ORDERED: Influenza Vaccine 60 MCG/0.5 ML SYR (3 yr & up) IM ONE (22:19)
[2018-05-20] MEDS ORDERED: Pneumococcal 23-Valent Vaccine IM ONE (22:20)
--- NOTE | 2018-05-21 01:40 | OP ---
PROCEDURE DATE: 05/20/2018 UROLOGY OPERATIVE NOTE PREOPERATIVE DIAGNOSES: Urinary retention, voiding dysfunction, meatal stenosis, and hidden penis. POSTOPERATIVE DIAGNOSES: Urinary retention, voiding dysfunction, meatal stenosis, and extremely hidden penis. PROCEDURES: Meatal dilatation and insertion of a Fry catheter with difficulty. COMPLICATIONS: There were no complications. BLOOD LOSS: Less than 10 mL. Determination, it appears that the patient has an indwelling Fry catheter. See the history and physical for further details. This is a very pleasant gentleman who is here now for the above procedure. DESCRIPTION OF PROCEDURE: First, we tried doing with just local lidocaine, but then the patient was somewhat uncomfortable. We ended up leading to give him a little bit of nitrates. Just to find the meatus anatomy, I was unable to find the meatus that I cannot see it well, but I can grab up on the penis and the glans and then unable to insert the Fry, today we were not able to do easily. The procedure continued along and in this fashion, we were able to find it. We actually had used a dilatator a little bit to appreciate the meatus better. I needed two hands to help me just to identify. I then inserted the Fry catheter via the urethra. The meatus, the place where we removed the old catheter from, is difficulty to manage well. I think the old catheter was not enough for now. Subsequently when we got into the bladder, we had a good urine output. We irrigated. It looks like a thin wall. The patient tolerated without complications. ADDENDUM TO THIS NOTE: I am still concerned because it is just an unusual urethra. I am going to provide the patient with antibiotics right now with the dose of gentamicin, but my real suggestion is going to be considered even if this is erratic thought, some form of circumcision to have better exposure to the penis or even consider a cut down the cystostomy tube, and it was becoming progressively more difficult. Clint Cedeno MD
--- NOTE | 2018-05-21 06:50 | HP ---
REASON FOR ADMISSION: Catheter not working well. HISTORY OF PRESENT ILLNESS: The patient was in emergency room on 05/17/2018, I spoke to the doctor at that time and the PA, and we discussed inserting the catheter and discussed me coming to insert the catheter. After the PA subsequently placed the catheter, felt that it was in place and the patient was discharged home, but he reports to me that over the course of the weekend, it was leaking and it was not doing well. catheter we brought him here as an emergency. We are going to bring him to the OR to change it. See the operative note below. PAST MEDICAL AND SURGICAL HISTORY: As listed. Patient of Dr. Garcia. SOCIAL HISTORY: Socially, he is in the correction. PHYSICAL EXAMINATION: GENERAL: Well nourished male. Body habitus noted. He is on a stretcher. VITAL SIGNS: As noted. ABDOMEN: Overall soft. Not grossly distended. : His penis is the following, you cannot see the meatus from the skin, normally what I do, when I change the catheter, although today it was difficult, I grab the skin and I am able to negotiate and grab the penis at its base. Today, it is extremely difficult and cannot find the meatus as well. See the operative note for separate procedure note. DIAGNOSES: Urinary retention, voiding dysfunction, meatal stenosis, terribly tight phimosis. PLAN: As follows, normally what we are able to do is to remove the catheter and insert a new one, I believe that over the last change the patient was went to the emergency room on I believe 05/16/2018 or 05/17/2018, but I think it is 05/17/2018 where they felt that perhaps they got the catheter, but perhaps to the hub. He has been having trouble through weekend, so we will bring him as an emergency admission to the same day unit. We are going to try to change the catheter again now and then see how he does. ADDENDUM: I had some great difficulty. We had actually given sedation, which we do not normally do. See the operative note. We were able to eventually insert a Fry catheter via the urethra a 20-Persian home health care coordinator-day tipped and we irrigated it. The patient tolerated the procedure well. See the separately dictated operative note. DIAGNOSES: Urinary retention, voiding dysfunction, hematuria in a gentleman who is a very pleasant 57-year-old frail with multiple medical problems. The plan is follows, monitor his urine output, to the correction and we will call them if there is any difficulty, we are going to treat him accordingly. We will also gave the patient some gentamicin for prophylaxis. Clint Cedeno MD
[2018-05-21 07:39] VITALS: RESP 20
[2018-05-21] MEDS ORDERED: Influenza Vaccine 60 MCG/0.5 ML SYR (3 yr & up) IM ONE (10:00)
[2018-05-21] MEDS ORDERED: (Novolog Mix 70/30) Insulin Aspart/Insulin Aspar 100 units/ml SC ONE (11:41)
[2018-05-21] MEDS: (Novolog) Insulin Aspart, Recombinant 100 u/ml 10 ml vial SC SCH ×2 (16:32→22:05)
--- NOTE | 2018-05-21 16:34 | CP.PCM.PN ---
Subjective - Date & Time of Evaluation Date of Evaluation: 05/21/18 Time of Evaluation: 16:34 - Subjective Subjective: PATIENT SEEN AND EXAMINED AT THE BEDSIDE Objective - Vital Signs/Intake and Output Vital Signs (last 24 hours): Temp Pulse Resp BP Pulse Ox 97.9 F 90 20 146/87 96 05/21/18 15:00 05/21/18 15:00 05/21/18 15:00 05/21/18 15:00 05/21/18 15:00 Intake and Output: 05/21/18 05/21/18 06:59 18:59 Intake Total 240 500 Output Total 1250 800 Balance -1010 -300 - Medications Medications: Current Medications Insulin Aspart (Novolog) 0 unit SC [facility]; Protocol Last Admin: 05/21/18 16:32 Dose: 12 units Assessment and Plan - Assessment and Plan (Free Text) Assessment: PLACE UNDER THE SERVICE OF DR SAUNDERS AT [facility]---CLL FOR ADMITTING ORDER FOLLOW UP WITH DR SALDANA IN 2-3 WEEK ---CALL FOR APPOINTMENT ADDRESS THE GONZALES CATHETER AT YOUR VISIT CONTINUE HOME MEDICATION GONZALES CATHETER CARE PER FACILITY PROTOCOL ACTIVITY TOLERATED AND FACILITY PROTOCOL CALL DR SAUNDERS OR DR SALDANA OR GO TO THE EMERGENCY IF SYMPTOM RETURN OR WORSENING
[2018-05-21] MEDS ORDERED: Magnesium Hydroxide Susp 30 ml UD PO PRN (22:49)
[2018-05-21] MEDS ORDERED: Budesonide 0.5 mg/2 ml Inhal Susp UD IH SCH (23:00)
[2018-05-22 07:47] LABS: HEMOGLOBIN 15.9 g/dL (12.0-18.0); MEAN CELL VOLUME 81.8 fL (80.0-94.0); MEAN CORPUSCULAR HEMOGLOBIN 27.3 pg (27.0-31.0); MEAN CORPUSCULAR HGB CONC 33.4 g/dL (33.0-37.0); MEAN PLATELET VOLUME 9.7 fL (7.2-11.7); RBC 5.82 Mil/uL (4.40-5.90); RED CELL DISTRIBUTION WIDTH 14.9 % (11.5-14.5); WHITE BLOOD COUNT 11.9 K/uL (4.8-10.8)
[2018-05-22 07:56] LABS: ALBUMIN 3.3 g/dL (3.5-5.0); ALT/SGPT 26 U/L (21-72); AST/SGOT 17 U/L (17-59); BLOOD UREA NITROGEN 15 mg/dL (9-20); CALCIUM 8.7 mg/dl (8.6-10.4); GFR NON-AFRICAN AMERICAN > 60; HDL CHOLESTEROL 23 mg/dL (30-70)
[2018-05-22 07:58] VITALS: O2SAT 95
[2018-05-22 08:06] LABS: LDL CHOLESTEROL 147 mg/dL (0-129)
[2018-05-22] MEDS: Albuterol-Ipratrop 3 mg / 0.5 (3 ml) UD IH SCH ×2 (08:20→14:05)
[2018-05-22] MEDS: (Novolog) Insulin Aspart, Recombinant 100 u/ml 10 ml vial SC SCH ×2 (08:30→12:30)
--- NOTE | 2018-05-22 12:42 | PCM.URO ---
Urology Progress Note - General General: No Complaints, Tolerating Diet - Subjective Abdominal Pain: No Flank Pain: No Nausea: No Vomiting: No Hematuria: No Dsypnea: No Chest Pain: No Fever & Chills: No - Objective Lab Studies: Reviewed Lab Results Last 24 Hours: Laboratory Results - last 24 hr 05/21/18 05/21/18 05/22/18 16:11 21:46 06:21 WBC RBC Hgb Hct MCV MCH MCHC RDW Plt Count MPV Sodium Potassium Chloride Carbon Dioxide Anion Gap BUN Creatinine Est GFR ( Amer) Est GFR (Non-Af Amer) POC Glucose (mg/dL) 418 H* 295 H 313 H Random Glucose Hemoglobin A1c Calcium Phosphorus Magnesium Total Bilirubin AST ALT Alkaline Phosphatase Total Protein Albumin Globulin Albumin/Globulin Ratio Triglycerides Cholesterol LDL Cholesterol Direct HDL Cholesterol 05/22/18 05/22/18 05/22/18 07:34 07:34 07:34 WBC 11.9 H RBC 5.82 Hgb 15.9 Hct 47.6 MCV 81.8 MCH 27.3 MCHC 33.4 RDW 14.9 H Plt Count 230 MPV 9.7 Sodium 132 Potassium 4.1 Chloride 95 L Carbon Dioxide 29 Anion Gap 12 BUN 15 Creatinine 0.7 L Est GFR ( Amer) > 60 Est GFR (Non-Af Amer) > 60 POC Glucose (mg/dL) Random Glucose 384 H Hemoglobin A1c 10.0 H Calcium 8.7 Phosphorus 3.3 Magnesium 1.8 Total Bilirubin 0.6 AST 17 D ALT 26 Alkaline Phosphatase 81 Total Protein 6.6 Albumin 3.3 L Globulin 3.3 Albumin/Globulin Ratio 1.0 Triglycerides 145 Cholesterol 188 LDL Cholesterol Direct 147 H HDL Cholesterol 23 L 05/22/18 11:01 WBC RBC Hgb Hct MCV MCH MCHC RDW Plt Count MPV Sodium Potassium Chloride Carbon Dioxide Anion Gap BUN Creatinine Est GFR ( Amer) Est GFR (Non-Af Amer) POC Glucose (mg/dL) 338 H Random Glucose Hemoglobin A1c Calcium Phosphorus Magnesium Total Bilirubin AST ALT Alkaline Phosphatase Total Protein Albumin Globulin Albumin/Globulin Ratio Triglycerides Cholesterol LDL Cholesterol Direct HDL Cholesterol Intake & Output: Intake & Output 05/21/18 05/22/18 05/22/18 18:59 06:59 18:59 Intake Total 500 740 Output Total 800 1700 Balance -300 -960 Intake: Oral 500 740 Output: Urine 800 1700 Urethral (Fry) 800 1700 Other: # Bowel Movements 1 2 Vital Signs: Vital Signs - 24 hr 05/21/18 05/21/18 05/22/18 15:00 23:45 07:57 Temperature 97.9 F 98.2 F 97.9 F Pulse Rate 90 80 88 Respiratory 20 20 20 Rate Blood Pressure 146/87 139/93 H 117/72 O2 Sat by Pulse 96 93 L 95 Oximetry 05/22/18 05/22/18 05/22/18 09:44 10:04 10:05 Temperature Pulse Rate 88 97 H Respiratory Rate Blood Pressure 152/91 H 152/91 H O2 Sat by Pulse Oximetry - Physical Exam Abdominal Exam: Soft, Non-Tender, Non-Distended Back: No CVA Tenderness Genitalia: Without Inflammation Urinary Catheter Draining Well: Yes Urine Color: Clear, Yellow - Male Phallus: Normal - Plan Additional Information: Imp: stable overall. retention. catheter in place. neurogenic bladder - Date & Time of Note Date: 05/22/18 Time: 12:41
[2018-05-22 15:45] VITALS: BP 148/79; PULSE 98; TEMP 98
--- NOTE | 2018-05-22 21:16 | CP.PCM.CON ---
Past Patient History - Infectious Disease Hx of Infectious Diseases: None - Past Medical History & Family History Past Medical History?: Yes - Past Social History Smoking Status: Former Smoker - CARDIAC Hx Cardiac Disorders: Yes Hx Cardia Arrhythmia: Yes (Afib) Hx Circulatory Problems: Yes Hx Congestive Heart Failure: Yes Hx Hypercholesterolemia: Yes Hx Hypertension: Yes Hx Peripheral Edema: Yes - PULMONARY Hx Respiratory Disorders: Yes Hx Asthma: Yes Hx Chronic Obstructive Pulmonary Disease (COPD): Yes - NEUROLOGICAL Hx Neurological Disorder: Yes HX Cerebrovascular Accident: Yes Hx Paralysis: Yes Other/Comment: Paraplegia/ spinal tumor-WITH SX 2014 unable to ambulated since, weakness ble and weak hand grasps, cold b/l ankles and feet - HEENT Hx HEENT Problems: Yes Hx Blind: Yes (left eye) - RENAL Hx Chronic Kidney Disease: No Other/Comment: renal insuffieciency - ENDOCRINE/METABOLIC Hx Endocrine Disorders: Yes Hx Adrenal Cancer: No Hx Diabetes Insipidus: Yes Hx Diabetes Mellitus Type 1: Yes Hx Diabetes Mellitus Type 2: Yes - HEMATOLOGICAL/ONCOLOGICAL Hx Blood Disorders: No Hx Anemia: Yes Hx Blood Transfusions: No Hx Cancer: No Other/Comment: sepsis - INTEGUMENTARY Hx Dermatological Problems: No Other/Comment: ABDOMINAL FOLDS MASD,BILATERAL LE SKIN DRYNESS,LARGE THIN FLAKES,LIGHT BROWN SKIN DISCOLORATION,RIGHT BIG TOE WITH FLUSHED SKIN,SWELLING.STATES NAIL WAS CLIPPED AND NEVER HEALED. - MUSCULOSKELETAL/RHEUMATOLOGICAL Hx Musculoskeletal Disorders: Yes Hx Arthritis: Yes Hx Back Pain: Yes Hx Falls: No Hx Spinal Stenosis: Yes Hx Unsteady Gait: Yes (bedridden hoya lift oob to chair) Other/Comment: paraplygia - GASTROINTESTINAL Hx Gastrointestinal Disorders: No Other/Comment: Morbid obesity, incONTINENT - GENITOURINARY/GYNECOLOGICAL Hx Genitourinary Disorders: Yes Hx Incontinence: Yes Hx Urinary Tract Infection: Yes Other/Comment: chronic Urinary catheter - PSYCHIATRIC Hx Psychophysiologic Disorder: No Hx Substance Use: No - SURGICAL HISTORY Hx Surgeries: Yes Hx Musculoskeletal Surgery: Yes (RIGHT KNEE) Hx Orthopedic Surgery: Yes (BILATERAL WRIST CARPAL TUNNEL REPAIR) Other/Comment: spinal sx - ANESTHESIA Hx Anesthesia: Yes Hx Anesthesia Reactions: No Hx Malignant Hyperthermia: No Meds Allergies/Adverse Reactions: Allergies Allergy/AdvReac Type Severity Reaction Status Date / Time Penicillins Allergy Severe ANAPHYLAXIS Verified 05/16/18 17:41 Results - Vital Signs Recent Vital Signs: Last Vital Signs Temp 98.0 F 05/22/18 15:00 Pulse 98 H 05/22/18 15:00 Resp 20 05/22/18 15:00 BP 148/79 05/22/18 15:00 Pulse Ox 95 05/22/18 15:00 - Labs Result Diagrams: 05/22/18 07:34 05/22/18 07:34 Labs: Laboratory Results - last 24 hr 05/21/18 05/22/18 05/22/18 21:46 06:21 07:34 WBC 11.9 H RBC 5.82 Hgb 15.9 Hct 47.6 MCV 81.8 MCH 27.3 MCHC 33.4 RDW 14.9 H Plt Count 230 MPV 9.7 Sodium Potassium Chloride Carbon Dioxide Anion Gap BUN Creatinine Est GFR ( Amer) Est GFR (Non-Af Amer) POC Glucose (mg/dL) 295 H 313 H Random Glucose Hemoglobin A1c Calcium Phosphorus Magnesium Total Bilirubin AST ALT Alkaline Phosphatase Total Protein Albumin Globulin Albumin/Globulin Ratio Triglycerides Cholesterol LDL Cholesterol Direct HDL Cholesterol 05/22/18 05/22/18 05/22/18 07:34 07:34 11:01 WBC RBC Hgb Hct MCV MCH MCHC RDW Plt Count MPV Sodium 132 Potassium 4.1 Chloride 95 L Carbon Dioxide 29 Anion Gap 12 BUN 15 Creatinine 0.7 L Est GFR ( Amer) > 60 Est GFR (Non-Af Amer) > 60 POC Glucose (mg/dL) 338 H Random Glucose 384 H Hemoglobin A1c 10.0 H Calcium 8.7 Phosphorus 3.3 Magnesium 1.8 Total Bilirubin 0.6 AST 17 D ALT 26 Alkaline Phosphatase 81 Total Protein 6.6 Albumin 3.3 L Globulin 3.3 Albumin/Globulin Ratio 1.0 Triglycerides 145 Cholesterol 188 LDL Cholesterol Direct 147 H HDL Cholesterol 23 L
[2018-05-22] MEDS ORDERED: Home Med 1 UNIT (Melatonin [Melatonin] 3 MG) PO SCH (22:00)
[2018-05-22] MEDS ORDERED: Rosuvastatin Calcium 2.5 mg Tab PO SCH (22:00)
[2018-05-22] MEDS ORDERED: Insulin Detemir 100 units/ml Vial (Levemir) SC SCH (22:00)
== END 2018-05-22 16:41 | disposition home or self-care (01) ==
LOC: C.SDS 11:47 → C.9S 15:17 → C.5S 20:57
PROVIDERS: ADMIT Urology; ATTEND Urology
DX: R33.9 Retention of urine, unspecified (principal); N35.911 Unspecified urethral stricture, male, meatal; Q55.64 Hidden penis; I48.91 Unspecified atrial fibrillation; I50.9 Heart failure, unspecified; E78.00 Pure hypercholesterolemia, unspecified; I11.0 Hypertensive heart disease with heart failure; J44.9 Chronic obstructive pulmonary disease, unspecified; Z86.73 Personal history of transient ischemic attack (TIA), and cerebral infarction without residual deficits; Z79.4 Long term (current) use of insulin; Z87.440 Personal history of urinary (tract) infections; Z87.891 Personal history of nicotine dependence; C91.10 Chronic lymphocytic leukemia of B-cell type not having achieved remission; G82.20 Paraplegia, unspecified; H54.7 Unspecified visual loss
CPT/HCPCS: 36415; 51703; 80053; 80061; 82948; 83036; 83735; 84100; 85027; 94640; G0378; J1580

== ENCOUNTER 2018-11-25 14:41 | Emergency (ER) | payer MEDICARE, MEDICAID ==
[2018-11-25 14:41] VITALS: PULSE 90
[2018-11-25 14:54] VITALS: BMI 52.4
--- NOTE | 2018-11-25 15:25 | C.PDOC ---
History Of Present Illness 57-year-old male presents to the ED for evaluation of pain around his plata catheter area. Patient denies fever, chills, or any additional complaints at this time. Time Seen by Provider: 11/25/18 15:02 Chief Complaint (Nursing): Male Genitourinary History Per: Patient History/Exam Limitations: no limitations Onset/Duration Of Symptoms: Days Current Symptoms Are (Timing): Still Present Quality Of Discomfort: "Pain" Associated Symptoms: denies: Fever, Chills Additional History Per: Patient Past Medical History Reviewed: Historical Data, Nursing Documentation, Vital Signs Vital Signs: Last Vital Signs Temp 99.2 F 11/25/18 14:46 Pulse 60 11/25/18 14:46 Resp 20 11/25/18 14:46 BP 136/76 11/25/18 14:46 Pulse Ox 96 11/25/18 14:46 Primary Care Provider: Dee Dee Garcia - Medical History PMH: Anemia, Arthritis (Rt knee), Asthma, Atrial Fibrillation, Cardia Arrhythmia (Afib), CHF, COPD, Depression, HTN, Hypercholesterolemia, Peripheral Edema, Chronic Kidney Disease Denies: Deep Vein Thrombosis Surgical History: Back Surgery Denies: Pacemaker - [facility] Procedures ASSISTANCE WITH RESPIRATORY VENTILATION, 24-96 HRS, CPAP (07/25/18) ASSISTANCE WITH RESPIRATORY VENTILATION, <24 HRS, CPAP (06/22/18) CHANGE DRAINAGE DEVICE IN BLADDER, EXTERNAL APPROACH (11/23/17) DRAINAGE OF BLADDER WITH DRAINAGE DEVICE, PERC APPROACH (07/25/18) FLUOROSCOPY OF BLADDER USING LOW OSMOLAR CONTRAST (07/25/18) INSERTION OF INFUSION DEV INTO L SUBCLAV VEIN, PERC APPROACH (11/23/17) INSERTION OF INFUSION DEVICE INTO UPPER VEIN, PERC APPROACH (08/12/17) INSPECTION OF URETER, ENDO (03/08/16) INTRODUCE OF OTH THERAP SUBST INTO RESP TRACT, VIA OPENING (07/25/18) INTRODUCTION OF VASOPRESSOR INTO PERIPH VEIN, PERC APPROACH (09/02/15) IRRIGATION OF INDWELL DEV USING IRRIGAT, SHOP AND ALTERATION TAILOR APPROACH (03/08/16) PLAIN RADIOGRAPHY OF BLADDER (03/08/16) ULTRASONOGRAPHY OF LEFT UPPER EXTREMITY VEINS, GUIDANCE (11/23/17) Family History: States: Unknown Family Hx - Social History Hx Alcohol Use: No Hx Substance Use: No - Immunization History Hx Tetanus Toxoid Vaccination: No Hx Influenza Vaccination: No Hx Pneumococcal Vaccination: No Review Of Systems Constitutional: Negative for: Fever, Chills Genitourinary: Positive for: Other (pain around plata ) Physical Exam - Physical Exam Appears: Non-toxic, No Acute Distress, Other (morbidly obese ) Skin: Normal Color, Warm, Dry Head: Atraumatic, Normacephalic Oral Mucosa: Moist Neck: Supple Chest: Symmetrical, No Deformity, No Tenderness Cardiovascular: Rhythm Regular, No Murmur Respiratory: Normal Breath Sounds, No Rales, No Rhonchi, No Wheezing Gastrointestinal/Abdominal: Soft, No Tenderness, No Guarding, No Rebound Male Genital: Other (plata catheter in place ) Extremity: Normal ROM, Capillary Refill (less than 2 seconds ) Neurological/Psych: Oriented x3, Normal Speech, Normal Cognition ED Course And Treatment O2 Sat by Pulse Oximetry: 96 (on RA) Pulse Ox Interpretation: Normal Medical Decision Making Medical Decision Making: Progress: Case discussed with Dr. Ryder Cedeno, who recommends plata change and will see pt oupt. Disposition - Disposition Disposition: HOME/ ROUTINE Disposition Time: 20:00 Condition: STABLE Additional Instructions: follow up with dr medley. return to er with worsening. Forms: [email or web address] (Mexican) - Clinical Impression Clinical Impression: Malfunction of Plata catheter, Urinary catheter (Plata) change required - Scribe Statement The provider has reviewed the documentation as recorded by the Scribe (Macy Mata) Provider Attestation: All medical record entries made by the Scribe were at my direction and personally dictated by me. I have reviewed the chart and agree that the record accurately reflects my personal performance of the history, physical exam, medical decision making, and the department course for this patient. I have also personally directed, reviewed, and agree with the discharge instructions and disposition.
--- NOTE | 2018-11-25 15:28 | C.PDOC ---
Time Seen by Provider: 11/25/18 15:02 Chief Complaint (Nursing): Male Genitourinary Past Medical History Vital Signs: Last Vital Signs Temp 99.2 F 11/25/18 14:46 Pulse 60 11/25/18 14:46 Resp 20 11/25/18 14:46 BP 136/76 11/25/18 14:46 Pulse Ox 96 11/25/18 14:46 Primary Care Provider: Dee Dee Garcia - Medical History PMH: Anemia, Arthritis (Rt knee), Asthma, Atrial Fibrillation, Cardia Arrhythmia (Afib), CHF, COPD, Depression, HTN, Hypercholesterolemia, Peripheral Edema, Chronic Kidney Disease Denies: Deep Vein Thrombosis Surgical History: Back Surgery Denies: Pacemaker - [facility] Procedures ASSISTANCE WITH RESPIRATORY VENTILATION, 24-96 HRS, CPAP (07/25/18) ASSISTANCE WITH RESPIRATORY VENTILATION, <24 HRS, CPAP (06/22/18) CHANGE DRAINAGE DEVICE IN BLADDER, EXTERNAL APPROACH (11/23/17) DRAINAGE OF BLADDER WITH DRAINAGE DEVICE, PERC APPROACH (07/25/18) FLUOROSCOPY OF BLADDER USING LOW OSMOLAR CONTRAST (07/25/18) INSERTION OF INFUSION DEV INTO L SUBCLAV VEIN, PERC APPROACH (11/23/17) INSERTION OF INFUSION DEVICE INTO UPPER VEIN, PERC APPROACH (08/12/17) INSPECTION OF URETER, ENDO (03/08/16) INTRODUCE OF OTH THERAP SUBST INTO RESP TRACT, VIA OPENING (07/25/18) INTRODUCTION OF VASOPRESSOR INTO PERIPH VEIN, PERC APPROACH (09/02/15) IRRIGATION OF INDWELL DEV USING IRRIGAT, CHILDREN'S ENTERTAINER APPROACH (03/08/16) PLAIN RADIOGRAPHY OF BLADDER (03/08/16) ULTRASONOGRAPHY OF LEFT UPPER EXTREMITY VEINS, GUIDANCE (11/23/17) Family History: States: Unknown Family Hx - Social History Hx Alcohol Use: No Hx Substance Use: No - Immunization History Hx Tetanus Toxoid Vaccination: No Hx Influenza Vaccination: No Hx Pneumococcal Vaccination: No ED Course And Treatment O2 Sat by Pulse Oximetry: 96 Disposition - Disposition Disposition: HOME/ ROUTINE Disposition Time: 15:24 Condition: STABLE Additional Instructions: follow up with dr medley. return to er with worsening. - Clinical Impression Clinical Impression: Malfunction of Fry catheter, Urinary catheter (Fry) change required
[2018-11-25 16:27] VITALS: TEMP 98.1
[2018-11-25 20:14] VITALS: BP 151/77; PULSE 77; RESP 20
[2018-11-25 22:55] VITALS: O2SAT 96
== END 2018-11-25 21:05 | disposition home or self-care (01) ==
LOC: C.ER 14:41
DX: T83.091A Other mechanical complication of indwelling urethral catheter, initial encounter (principal); Y84.9 Medical procedure, unspecified as the cause of abnormal reaction of the patient, or of later complication, without mention of misadventure at the time of the procedure